=== PATIENT | male | born 1955 | race Caucasian/White ===

== ENCOUNTER → 2020-10-17 00:16 | Outpatient (CLI) | payer OTHER, SELFPAY ==
[2020-10-17 18:59] LABS: SARS-CoV-2 RNA PCR Negative
== END ==
PROVIDERS: PCP Family Medicine; Visit Provider Internal Medicine Gastroenterology
DX: Z01.812 Encounter for preprocedural laboratory examination (principal); Z20.822 Contact with and (suspected) exposure to COVID-19
CPT/HCPCS: C9803; U0003; U0005

== ENCOUNTER 2020-10-20 01:56 | Day surgery (SDC) | payer OTHER, SELFPAY ==
[2020-10-09 10:40] VITALS: BMI 25.1
[2020-10-20 11:04] VITALS: BP 149/101; PULSE 55; RESP 20; TEMP 36.2; O2SAT 98
[2020-10-20] MEDS: LACTATED RINGERS 1,000 ML 150 ML IV CONT (11:11)
--- NOTE | 2020-10-20 11:16 | P.PNAN_ITS ---
Anes - Initial Pre Proc Eval Procedure: Operation Date: 10/20/20 12:15 Proposed Procedures p Colonoscopy - Pasquale Edwards MD Date/Time: 10/20/20 11:16 Surgeon: Pasquale Edwards MD Pre Op Diagnosis: Positive cologuard Patient Data Age: 65 Gender: M Height: 6 ft Weight: 83.6 kg Last Vital Signs Temp 97.1 F L 10/20/20 11:04 Pulse 55 L 10/20/20 11:04 Resp 20 10/20/20 11:04 BP 149/101 H 10/20/20 11:04 Pulse Ox 98 10/20/20 11:04 Allergies Allergy/AdvReac Type Severity Reaction Status Date / Time No Known Allergies Allergy Unknown Verified 08/29/20 11:07 Home Medications Medication Instructions Recorded Confirmed Type simvastatin 10 mg tablet See Rx Instructions .ROUTE 07/25/20 10/09/20 Rx .COMPLEX #90 tablet atenolol 50 mg tablet See Rx Instructions .ROUTE 09/29/20 10/20/20 Rx .COMPLEX #90 tablet sodium,potassium,mag sulfates 17.5 See Rx Instructions PO .COMPLEX 10/08/20 10/09/20 Rx gram-3.13 gram-1.6 gram oral soln #354 ml multivitamin [Men's Multi-Vitamin] 1 tablet PO DAILY 10/09/20 10/09/20 History vit C-E-zinc [id number] 1 tablet PO DAILY 10/09/20 10/09/20 History [[facility]] Patient hx anesthesia problems: none Family hx anesthesia problems: none PMFSH Past Medical History Medical History (Updated 10/20/20 @ 11:16 by Jesus Mckinney MD) Essential (primary) hypertension Mixed hyperlipidemia Surgical History Surgical History H/O colonoscopy Family History Family History Father Diabetes mellitus Family history of glaucoma Sibling Diabetes mellitus Cerebrovascular accident Mother Hypertension Carcinoma of colon Family history of lung cancer Other No family history of cardiovascular disease Social History Social History Smoking status: Never smoker Alcohol intake: current Drinks per week: 14 Alcohol use details: 2 beers a day Substance use: current Substance use type: marijuana Last use: 10/06/2020 Living arrangements: alone Gender identity (if verbalized by the patient): Male Spiritual care concerns: No Anes - Eval Final PreProcedure Day of Procedure 10/20/20 11:16 Patient weight: normal Heart: regular rate and rhythm Lungs: clear to auscultation Airway: Mallampati scale class II Neurological: alert and oriented Last oral intake: >/= 8 hours ASA classification: II Emergent: no Anesthetic plan: proceed Anesthesia type and monitoring: general GIVS and standard monitoring Informed Consent: The patient's anesthetic plan and its attendant risks and benefits were discussed with the patient/family/POA. Questions were solicited and answers provided to the satisfaction of the patient/family/POA.
--- NOTE | 2020-10-20 12:29 | PM.HPGS ---
History of Present Illness History of Present Illness Consent: Risks, benefits, and alternatives have been discussed and questions answered. Patient agrees to proceed with procedure. Chief complaint: Positive cologuard Narrative: Josh Toscano is a 65 year old male with + cologuard, last colonoscopy 2008 Review of Systems Constitutional: Constitutional: Denies headache(s) and Denies weakness Eyes: Eyes: Denies blurry vision ENT: Reports Normal hearing present, Denies headache(s) and Denies neck pain Cardiovascular: Cardiovascular: Denies chest pain and Denies dyspnea Respiratory: Respiratory: Denies dyspnea Gastrointestinal: Gastrointestinal: Reports no additional gastrointestinal complaints Genitourinary: Genitourinary: Denies dysuria Musculoskeletal: Musculoskeletal: Denies neck pain Integumentary/Breasts: Skin/Breast: Denies dry skin Neurologic: Reports Normal hearing present, Denies headache(s) and Denies weakness Psychiatric: Psychiatric: Denies anxiety Endocrine: Endocrine: Denies change in body appearance Hematologic/Lymphatic: Hematologic/Lymphatic: Denies easy bleeding Allergic/Immunologic: Allergic/Immunologic: Denies urticaria PMFSH Past Medical History Medical History (Updated 10/20/20 @ 12:29 by Pasquale Edwards MD) Essential (primary) hypertension Mixed hyperlipidemia Positive colorectal cancer screening using Cologuard test Surgical History Surgical History H/O colonoscopy Family History Family History Father Diabetes mellitus Family history of glaucoma Sibling Diabetes mellitus Cerebrovascular accident Mother Hypertension Carcinoma of colon Family history of lung cancer Other No family history of cardiovascular disease Social History Social History Smoking status: Never smoker Alcohol intake: current Drinks per week: 14 Alcohol use details: 2 beers a day Substance use: current Substance use type: marijuana Last use: 10/06/2020 Living arrangements: alone Gender identity (if verbalized by the patient): Male Spiritual care concerns: No Meds Home Medications and Allergies Home Medications Medication Instructions Recorded Confirmed Type simvastatin 10 mg tablet See Rx Instructions .ROUTE 07/25/20 10/09/20 Rx .COMPLEX #90 tablet atenolol 50 mg tablet See Rx Instructions .ROUTE 09/29/20 10/20/20 Rx .COMPLEX #90 tablet sodium,potassium,mag sulfates 17.5 See Rx Instructions PO .COMPLEX 10/08/20 10/09/20 Rx gram-3.13 gram-1.6 gram oral soln #354 ml multivitamin [Men's Multi-Vitamin] 1 tablet PO DAILY 10/09/20 10/09/20 History vit C-E-zinc [id number] 1 tablet PO DAILY 10/09/20 10/09/20 History [[facility]] Allergies Allergy/AdvReac Type Severity Reaction Status Date / Time No Known Allergies Allergy Unknown Verified 08/29/20 11:07 Vital Signs Vital Signs - 24 hr 10/20/20 11:04 Temperature 97.1 F L Pulse Rate 55 L Respiratory Rate 20 Blood Pressure 149/101 H Pulse Oximetry 98 Exam Const: General: comfortable and no acute distress HENMT: General nose exam: Normal nares present Eyes: General: appearance normal, both eyes and all related structures Neck: Neck: no JVD Resp: Auscultation: clear to auscultation bilaterally Cardio: Rate: regular rate Rhythm: regular rhythm GI: Inspection: non-distended GI Palp: Yes Soft to palpation Skin: General skin exam: normal color Neuro: General: gait normal Speech: normal speech Extrem: General: normal to inspection Psych: Mental Status: mental status grossly normal Assessment and Plan Assessment and plan (1) Positive colorectal cancer screening using Cologuard test: Code(s): R19.5 - Other fecal abnormalities Status: Acute Asses
[2020-10-20 12:54] VITALS: BP 107/71; PULSE 58; RESP 20; O2SAT 98
[2020-10-20 13:04] VITALS: BP 112/75; PULSE 52; RESP 18; O2SAT 100
[2020-10-20 13:14] VITALS: BP 137/88; PULSE 50; RESP 20; O2SAT 100
== END 2020-10-20 13:42 | disposition home or self-care (01) ==
PROVIDERS: PCP Family Medicine; Visit Provider Internal Medicine Gastroenterology
PROC: 0DJD8ZZ Inspection of Lower Intestinal Tract, Via Natural or Artificial Opening Endoscopic (ICD-10-PCS; CPT 45378; principal; 2020-10-20 12:15)
DX: R19.5 Other fecal abnormalities (principal); D12.2 Benign neoplasm of ascending colon; K57.30 Diverticulosis of large intestine without perforation or abscess without bleeding; K64.8 Other hemorrhoids; I10 Essential (primary) hypertension; E78.2 Mixed hyperlipidemia; Z80.0 Family history of malignant neoplasm of digestive organs; Z80.1 Family history of malignant neoplasm of trachea, bronchus and lung
CPT/HCPCS: 45385; 88305; J2704; J7120

== ENCOUNTER → 2021-06-05 13:48 | Outpatient (CLI) | payer MEDICARE, OTHER, SELFPAY ==
--- NOTE | ~2021-06-05 | XR_ITS ---
XR shoulder RT min 2V 06/05/2021 14:31 Indication: Right shoulder pain Procedure: 4 views right shoulder Comparison: No prior studies for comparison. Findings: There is mild osteoarthritis of the right acromioclavicular joint. No fracture or traumatic malalignment. Surrounding osseous structures and soft tissues are within normal limits. No foreign b odies. Impression: 1: Mild osteoarthritis of the right acromioclavicular joint. Reviewed, dictated and finalized at location A. Impression: 1: Mild osteoarthritis of the right acromioclavicular joint.
== END ==
PROVIDERS: PCP Family Medicine; Visit Provider Family Medicine
DX: M25.511 Pain in right shoulder (principal); M19.011 Primary osteoarthritis, right shoulder
CPT/HCPCS: 73030

== ENCOUNTER 2024-08-25 07:55 | Outpatient (CLI) | payer MEDICARE, OTHER, SELFPAY ==
--- NOTE | ~2024-08-25 | US_ITS ---
EXAMINATION: US abdomen complete DATE: 08/25/2024 08:21 INDICATION: R74.8 - Abnormal levels of other serum enzymes TECHNIQUE: Computed COMPARISON: None available. FINDINGS: The visualized portions of the pancreas are normal. The liver is diffusely echogenic. No zimmerman rface nodularity. Normal hepatopetal flow in the main portal vein. The gallbladder is normal with no abnormal wall thickening, pericholecystic fluid or stones. The common bile duct measures 4 mm. There was no sonographic Britton sign. The visualized portions of the aorta and inferior vena cava are caridad l. The right kidney measures 10.9 x 4.8 x 5.8 cm. The left kidney measures 11.0 x 6.7 x 5.8 cm. The kidn eys demonstrate normal parenchymal echogenicity. There is no hydronephrosis. The spleen is normal in appearance and measures cm. IMPRESSION: Echogenic liver, most commonly due to steatosis. Nodular liver border, a finding of cirrhosis. Otherw ise normal abdominal ultrasound findings. Reviewed, dictated and finalized at location K. ANY MARKER IMPRESSION: Echogenic liver, most commonly due to steatosis. Nodular liver border, a findin g of cirrhosis. Otherwise normal abdominal ultrasound findings.
== END 2024-08-25 07:56 | disposition home or self-care (01) ==
LOC: MICIMG 07:55
PROVIDERS: PCP Family Medicine; Visit Provider Nurse Practitioner
DX: R74.8 Abnormal levels of other serum enzymes (principal)
CPT/HCPCS: 76700